=== PATIENT | female | born 1995 | race American Indian/Alaskan Native ===

== ENCOUNTER 2017-10-19 14:37 | Emergency (ER) | payer BC ==
[2017-10-19 14:47] VITALS: BP 113/70
[2017-10-19 15:13] LABS: Bilirubin,Urine NEG (Negative); Blood,Urine NEG (Negative); Color,Urine Yellow (Yellow); Mucus,Urine FEW /HPF; Protein,Urine <15 mg/dL mg/dL (Negative)
[2017-10-19 15:17] LABS: HCG Qualitative,Urine Positive (Negative)
--- NOTE | 2017-10-19 16:28 | Emergency Department Report ---
ED Female HPI - General Chief complaint: Abdominal Pain Stated complaint: ABD CRAMPS Time Seen by Provider: 10/19/17 14:53 Source: patient Mode of arrival: Ambulatory Limitations: No Limitations - History of Present Illness Initial comments: 22-year-old female presents with complaint of crampy lower abdominal pain worsening for 2 days. Patient states her last menstrual period was approximately 09/07/17. denies fevers chills nausea vomiting increased urinary frequency or dysuria. Denies vaginal discharge. Denies any vaginal bleeding at this time. Patient states pain is crampy and not intense in nature. Patient states this is similar to menstrual period. Is unsure if she is . MD Complaint: pelvic pain Onset/Timin -: days(s) Severity: moderate Severity scale (0 -10): 4 Quality: cramping Consistency: constant Improves with: none Are you Now?: Yes Last Menstrual Period: 09/07/17 EDC: 06/14/18 - Related Data Sexually active: Yes : 1 Previous Rx's Medication Instructions Recorded Last Taken Type Nitrofurantoin [place]/M-Cryst 100 mg PO Q12HR #14 capsule 05/09/16 Unknown Rx [Macrobid CAP] 21/Iron Fu/Folic Acid 1 each PO QDAY #30 tablet 10/19/17 Unknown Rx [ Complete Caplet] Allergies Allergy/AdvReac Type Severity Reaction Status Date / Time No Known Allergies Allergy Verified 12/17/15 01:57 ED Review of Systems ROS: Stated complaint: ABD CRAMPS Other details as noted in HPI Constitutional: denies: chills, fever Eyes: denies: eye pain, eye discharge, vision change ENT: denies: ear pain, throat pain Respiratory: denies: cough, shortness of breath, wheezing Cardiovascular: denies: chest pain, palpitations Endocrine: no symptoms reported Gastrointestinal: denies: abdominal pain, nausea, diarrhea Genitourinary: denies: urgency, dysuria, discharge Musculoskeletal: denies: back pain, joint swelling, arthralgia Skin: denies: rash, lesions Neurological: denies: headache, weakness, paresthesias Psychiatric: denies: anxiety, depression Hematological/Lymphatic: denies: easy bleeding, easy bruising ED Past Medical Hx - Past Medical History Previous Medical History?: No - Surgical History Past Surgical History?: No - Social History Smoking Status: Never Smoker Substance Use Type: None - Medications Home Medications: Home Medications Medication Instructions Recorded Confirmed Last Taken Type Nitrofurantoin [place]/M-Cryst 100 mg PO Q12HR #14 capsule 05/09/16 Unknown Rx [Macrobid CAP] 21/Iron Fu/Folic Acid 1 each PO QDAY #30 tablet 10/19/17 Unknown Rx [ Complete Caplet] ED Physical Exam - General Limitations: No Limitations General appearance: alert, in no apparent distress - Head Head exam: Present: atraumatic, normocephalic - Eye Eye exam: Present: normal appearance, PERRL, EOMI - ENT ENT exam: Present: mucous membranes moist - Neck Neck exam: Present: normal inspection - Respiratory Respiratory exam: Present: normal lung sounds bilaterally. Absent: respiratory distress - Cardiovascular Cardiovascular Exam: Present: regular rate, normal rhythm. Absent: systolic murmur, diastolic murmur, rubs, gallop - GI/Abdominal GI/Abdominal exam: Present: soft, normal bowel sounds - External exam: Present: normal external exam Speculum exam: Present: normal speculum exam Bi-manual exam: Present: normal bi-manual exam (no cervical motion tenderness or adnexal tenderness on exam) - Extremities Exam Extremities exam: Present: normal inspection - Back Exam Back exam: Present: normal inspection - Neurological Exam Neurological exam: Present: alert, oriented X3, CN II-XII intact, normal gait - Psychiatric Psychiatric exam: Present: normal affect, normal mood - Skin Skin exam: Present: warm, dry, intact, normal color. Absent: rash ED Course Vital Signs 10/19/17 14:43 Temperature 98.3 F Pulse Rate 85 Respiratory 20 Rate Blood Pressure 113/70 O2 Sat by Pulse 99 Oximetry ED Medical Decision Making - Lab Data Result diagrams: 10/19/17 16:24 10/19/17 16:24 - Medical Decision Making A/P: 1-ultrasound shows IUP with sac no clear pole identified yet 2-beta hCG 14,000, Rh+ 3-follow-up with primary care and [facility] 4-wet prep unremarkable, urinalysis unremarkable Critical care attestation.: If time is entered above; I have spent that time in minutes in the direct care of this critically ill patient, excluding procedure time. ED Disposition Clinical Impression: Qualifiers: Weeks of gestation: less than 8 weeks Qualified Code(s): Z3A.01 - Less than 8 weeks gestation of Disposition: - TO HOME OR SELFCARE Is pt being admited?: No Does the pt Need Aspirin: No Condition: Stable Instructions: (ED) Prescriptions: 21/Iron Fu/Folic Acid [ Complete Caplet] 1 each PO QDAY #30 tablet Referrals: PRIMARY CARE [Primary Care Provider] - 3-5 Days [facility] [Provider Group] - 3-5 Days [facility] [Provider Group] - 3-5 Days Time of Disposition: 18:05
[2017-10-19 16:46] LABS: Basophils # (Auto) 0.1 K/mm3 (0.0-0.1); Basophils % (Auto) 0.4 % (0.0-1.8); Eosinophils # (Auto) 0.1 K/mm3 (0.0-0.4); Eosinophils % (Auto) 0.6 % (0.0-4.3); Hemoglobin 13.2 gm/dl (10.1-14.3); Mean Corpuscular HGB Conc 33 % (30-34); Mean Corpuscular Hemoglobin 27 pg (28-32); Mean Corpuscular Volume 82 fl (79-97); Monocytes # (Auto) 0.7 K/mm3 (0.0-0.8); Monocytes % (Auto) 5.2 % (0.0-7.3); Platelet Count 200 K/mm3 (140-440); Red Blood Count 4.86 M/mm3 (3.65-5.03); Red Cell Distribution Width 14.9 % (13.2-15.2)
[2017-10-19 16:48] LABS: BUN/Creatinine Ratio 20; Blood Urea Nitrogen 8 mg/dL (7-17); Calcium 9.3 mg/dL (8.4-10.2); Hemolysis Index 14
--- NOTE | 2017-10-19 17:54 | Ultrasound Report ---
FINAL REPORT EXAM: US OB < = 14 WEEKS FETUS HISTORY: pelvic pain, about 5 weeks by lmp 1 TECHNIQUE: Transabdominal and transvaginal sonography of the pelvis. PRIORS: None for this . FINDINGS: There is a single, intrauterine . Ultrasound estimated gestational age is 6 weeks 2 days. Ultrasound estimated date of confinement is 12 June 2018. Yolk sac visualized, but pole and heart motion not confidently identified at this time. The right ovary measures 2.5 x 1.6 x 2.5 cm and is grossly unremarkable. The left ovary measures 4.8 x 3.1 x 2.9 cm and contains cystic foci, largest measuring 2.6 cm and the smaller measuring 1.7 cm, with some internal echogenic debris. Remainder of uterus and adnexa grossly unremarkable. IMPRESSION: 1. Intrauterine of uncertain viability. Correlation with serial beta-hCG levels and follow-up ultrasound may help in further evaluation. 2. Findings which may represent functional cystic change in the left ovary. Clinical correlation and followup pelvic ultrasound in 6-10 weeks advised to document resolution.
--- NOTE | 2017-10-19 17:56 | Ultrasound Report ---
FINAL REPORT EXAM: US OB TRANSVAGINAL HISTORY: pelvic pain, about 5 weeks by lmp TECHNIQUE: Transabdominal and transvaginal sonography of the pelvis. PRIORS: None for this . FINDINGS: There is a single, intrauterine . Ultrasound estimated gestational age is 6 weeks 2 days. Ultrasound estimated date of confinement is 12 June 2018. Yolk sac visualized, but pole and heart motion not confidently identified at this time. The right ovary measures 2.5 x 1.6 x 2.5 cm and is grossly unremarkable. The left ovary measures 4.8 x 3.1 x 2.9 cm and contains cystic foci, largest measuring 2.6 cm and the smaller measuring 1.7 cm, with some internal echogenic debris. Remainder of uterus and adnexa grossly unremarkable. IMPRESSION: 1. Intrauterine of uncertain viability. Correlation with serial beta-hCG levels and follow-up ultrasound may help in further evaluation. 2. Findings which may represent functional cystic change in the left ovary. Clinical correlation and followup pelvic ultrasound in 6-10 weeks advised to document resolution.
== END 2017-10-19 18:26 | disposition home or self-care (01) ==
LOC: ED 14:37
DX: O26.891 Other specified pregnancy related conditions, first trimester (principal); R10.30 Lower abdominal pain, unspecified; Z3A.08 8 weeks gestation of pregnancy
CPT/HCPCS: 36415; 76801; 76817; 80048; 81001; 81025; 84702; 85025; 86850; 86900; 86901; 87210; 87591

== ENCOUNTER 2019-01-30 16:26 | Emergency (ER) | payer BC, OTHER ==
--- NOTE | 2019-01-30 17:12 | Event Note ---
ED Screening Note Date of service: 01/30/19 Time: 17:09 ED Screening Note: This is a 23 y.o. F. that presents to the ER with left sided abdominal pain for 2 days. LMP 01/13/2019, A0 Denies N/V/D, constipation, vaginal discharge. This initial assessment/diagnostic orders/clinical plan/treatment(s) is/are subject to change based on patients health status, clinical progression and re- assessment by fellow clinical providers in the ED. Further treatment and workup at subsequent clinical providers discretion. Patient/guardian urged not to elope from the ED as their condition may be serious if not clinically assessed and managed. Initial orders include: Labs
[2019-01-30 17:48] LABS: Basophils % (Auto) 0.4 % (0.0-1.8); Eosinophils % (Auto) 0.4 % (0.0-4.3); Hematocrit 41.2 % (30.3-42.9); Hemoglobin 13.6 gm/dl (10.1-14.3); Lymphocytes # (Auto) 2.1 K/mm3 (1.2-5.4); Lymphocytes % (Auto) 19.5 % (13.4-35.0); Mean Corpuscular HGB Conc 33 % (30-34); Mean Corpuscular Volume 84 fl (79-97); Monocytes # (Auto) 0.6 K/mm3 (0.0-0.8); Monocytes % (Auto) 5.4 % (0.0-7.3); Platelet Count 171 K/mm3 (140-440); Red Blood Count 4.91 M/mm3 (3.65-5.03); Red Cell Distribution Width 16.2 % (13.2-15.2)
[2019-01-30 18:03] LABS: Bilirubin,Urine NEG (Negative); Blood,Urine NEG (Negative); Color,Urine Yellow (Yellow); Mucus,Urine 3+ /HPF; Protein,Urine <15 mg/dL mg/dL (Negative); Urobilinogen,Urine < 2.0 mg/dL (<2.0)
[2019-01-30 18:32] LABS: Alanine Aminotransferase 8 units/L (7-56); Albumin 4.3 g/dL (3.9-5); BUN/Creatinine Ratio 13; Blood Urea Nitrogen 8 mg/dL (7-17); Calcium 8.9 mg/dL (8.4-10.2); Hemolysis Index 12
--- NOTE | 2019-01-30 19:16 | Emergency Department Report ---
ED Abdominal Pain HPI - General Chief Complaint: Abdominal Pain Stated Complaint: ABD PAIN Time Seen by Provider: 01/30/19 17:09 Source: patient Mode of arrival: Ambulatory Limitations: No Limitations - History of Present Illness Initial Comments: This is a 23-year-old female with no prior medical history presents ED complaining of left-sided pelvic pain for the past 2 days. Patient states that she has a history of ovarian cyst and was diagnosed recently. Patient denies nausea vomiting diarrhea, fever, vaginal bleeding, vaginal discharge. MD Complaint: abdominal pain - Related Data Previous Rx's Medication Instructions Recorded Last Taken Type 21/Iron Fu/Folic Acid 1 each PO QDAY #30 tablet 10/19/17 Unknown Rx [ Complete Caplet] Fluconazole [Diflucan TAB] 150 mg PO ONCE #1 tablet 07/24/18 Unknown Rx Nitrofurantoin [place]/M-Cryst 100 mg PO Q12HR #14 capsule 07/24/18 Unknown Rx [Macrobid CAP] metroNIDAZOLE 0.75% [Vandazole 1 applicator VG QHS 5 Days #1 tube 07/24/18 Unknown Rx 0.75% VAGINAL] Ibuprofen [Motrin] 800 mg PO Q8HR #25 tablet 01/30/19 Unknown Rx Allergies Allergy/AdvReac Type Severity Reaction Status Date / Time No Known Allergies Allergy Verified 12/17/15 01:57 ED Review of Systems ROS: Stated complaint: ABD PAIN Other details as noted in HPI Comment: All other systems reviewed and negative ED Past Medical Hx - Past Medical History Previous Medical History?: No - Surgical History Past Surgical History?: Yes Additional Surgical History: x1 - Social History Smoking Status: Never Smoker Substance Use Type: None - Medications Home Medications: Home Medications Medication Instructions Recorded Confirmed Last Taken Type 21/Iron Fu/Folic Acid 1 each PO QDAY #30 tablet 10/19/17 Unknown Rx [ Complete Caplet] Fluconazole [Diflucan TAB] 150 mg PO ONCE #1 tablet 07/24/18 Unknown Rx Nitrofurantoin [place]/M-Cryst 100 mg PO Q12HR #14 capsule 07/24/18 Unknown Rx [Macrobid CAP] metroNIDAZOLE 0.75% [Vandazole 1 applicator VG QHS 5 Days #1 tube 07/24/18 Unknown Rx 0.75% VAGINAL] Ibuprofen [Motrin] 800 mg PO Q8HR #25 tablet 01/30/19 Unknown Rx ED Physical Exam - General Limitations: No Limitations General appearance: alert, in no apparent distress - Head Head exam: Present: atraumatic, normocephalic - Eye Eye exam: Present: normal appearance - ENT ENT exam: Present: mucous membranes moist - Neck Neck exam: Present: normal inspection - Respiratory Respiratory exam: Present: normal lung sounds bilaterally. Absent: respiratory distress - Cardiovascular Cardiovascular Exam: Present: regular rate, normal rhythm. Absent: systolic murmur, diastolic murmur, rubs, gallop - GI/Abdominal GI/Abdominal exam: Present: soft, normal bowel sounds. Absent: distended, tenderness, guarding, mass - Extremities Exam Extremities exam: Present: normal inspection - Back Exam Back exam: Present: normal inspection - Neurological Exam Neurological exam: Present: alert, oriented X3 - Psychiatric Psychiatric exam: Present: normal affect, normal mood - Skin Skin exam: Present: warm, dry, intact, normal color. Absent: rash ED Course Vital Signs 01/30/19 01/30/19 17:10 20:42 Temperature 98.5 F 98.2 F Pulse Rate 87 66 Respiratory 16 16 Rate Blood Pressure 112/72 Blood Pressure 126/72 [Left] O2 Sat by Pulse 100 100 Oximetry ED Medical Decision Making - Lab Data Result diagrams: 01/30/19 17:22 01/30/19 17:22 - Medical Decision Making 25-year-old female presents with acute on chronic pelvic pain from ovarian cyst. Vital signs are normal urinalysis negative, all labs are within normal limits. Discussed findings with the patient. Discussed patient follow up with [facility]. Patient is in no acute distress. Critical care attestation.: If time is entered above; I have spent that time in minutes in the direct care of this critically ill patient, excluding procedure time. ED Disposition Clinical Impression: Pelvic pain, Ovarian cyst Disposition: DC-01 TO HOME OR SELFCARE Is pt being admited?: No Does the pt Need Aspirin: No Condition: Stable Instructions: Ovarian Cyst (ED), Chronic Pelvic Pain in Women (ED), Abdominal Pain (ED) Additional Instructions: Make sure to follow up with the primary care physician as discussed. Take all your medications as you've been prescribed. If you have any worsening symptoms or develop new symptoms please return to ED immediately. Prescriptions: Ibuprofen [Motrin] 800 mg PO Q8HR #25 tablet Referrals: EDEN ROA MD [Primary Care Provider] - 3-5 Days [facility] [Outside] - 3-5 Days [facility] [Provider Group] - 3-5 Days Forms: Work/School Release Form(ED) Time of Disposition: 20:09
[2019-01-30 20:43] VITALS: BP 126/72
== END 2019-01-30 20:42 | disposition home or self-care (01) ==
LOC: ED 16:26
DX: N83.209 Unspecified ovarian cyst, unspecified side (principal); Z98.890 Other specified postprocedural states; Z79.899 Other long term (current) drug therapy
CPT/HCPCS: 36415; 80053; 81001; 83690; 84703; 85025; 99283

== ENCOUNTER 2019-11-26 10:48 | Day surgery (SDC) | payer BC, OTHER ==
[2019-11-26] MEDS ORDERED: LACTATED RINGERS 1,000 ML IV SCH (11:21)
[2019-11-26] MEDS ORDERED: fentaNYL 100 MCG/2 ML INJ IV PRN (12:28)
[2019-11-26] MEDS ORDERED: ONDANSETRON 4 MG/2 ML INJ IV PRN (12:28)
--- NOTE | 2019-11-26 12:29 | Anesthesia Day of Surgery ---
Anesthesia Day of Surgery - Day of Surgery Patient Examined: Yes Patient H&P Reviewed: Yes Patient is NPO: Yes
--- NOTE | 2019-11-26 12:33 | Anesthesia Consultation ---
Anesthesia Consult and Med Hx Date of service: 11/26/19 - Airway Anesthetic Teeth Evaluation: Good ROM Head & Neck: Adequate Mental/Hyoid Distance: Adequate Mallampati Class: Class II Intubation Access Assessment: Good - Pre-Operative Health Status ASA Pre-Surgery Classification: ASA1 Proposed Anesthetic Plan: General - Central Nervous System Hx Psychiatric Problems: No - Other Systems Hx Cancer: No
[2019-11-26] MEDS ORDERED: MIDAZOLAM 2 MG/2 ML INJ IV NR (13:00)
[2019-11-26] MEDS ORDERED: propofoL 200 MG/20 ML VIAL IV ONE (13:02)
[2019-11-26] MEDS ORDERED: fentaNYL 100 MCG/2 ML INJ ONE (13:03)
[2019-11-26] MEDS ORDERED: LIDOCAINE MPF (2%) 20 MG/1 ML VIAL 5 ML ONE (13:03)
[2019-11-26] MEDS ORDERED: BUPIVACAINE/PF (0.5%) 5 MG/1 ML 30 ML VIAL INFILTRATI ONE (13:15)
[2019-11-26] MEDS ORDERED: METHYLENE BLUE 50 MG/10 ML AMP ONE (13:15)
[2019-11-26] MEDS ORDERED: ceFAZolin/STERILE WATER 2 GM/20 ML SYRINGE IV NR (15:30)
[2019-11-26] MEDS ORDERED: SODIUM CHLORIDE P/F VIAL 10 ML 20 ML ONE (15:33)
[2019-11-26] MEDS ORDERED: ceFAZolin/Water 2 GM/20 ML 2 GM/20 ML SYRINGE IV ONE (15:35)
[2019-11-26] MEDS ORDERED: SODIUM CHLORIDE 0.9% 100 ML ONE (15:59)
[2019-11-26 16:15] LABS: Hematocrit 42.2 % (30.3-42.9); Hemoglobin 13.6 gm/dl (10.1-14.3)
[2019-11-26] MEDS ORDERED: SODIUM CHLORIDE 0.9% 100 ML IVPB IV ONE (16:18)
[2019-11-26] MEDS ORDERED: METHYLENE BLUE 50 MG/10 ML AMP IV ONE (16:19)
[2019-11-26] MEDS ORDERED: SODIUM CHLORIDE 0.9% IRR 1,000 ML BOTTLE IR ONE (16:20)
[2019-11-26] MEDS ORDERED: HYDROmorphone 1 MG/1 ML INJ ONE (17:04)
[2019-11-26] MEDS ORDERED: NEOSTIGMINE 10MG/10 ML INJ MDV ONE (17:06)
[2019-11-26] MEDS ORDERED: LACTATED RINGERS 1,000 ML ONE (17:06)
[2019-11-26] MEDS ORDERED: KETOROLAC 30 MG/1 ML INJ ONE (17:06)
[2019-11-26] MEDS ORDERED: ONDANSETRON 4 MG/2 ML INJ ONE (17:06)
[2019-11-26] MEDS ORDERED: GLYCOPYRROLATE 0.4 MG/2 ML INJ ONE (17:06)
--- NOTE | 2019-11-26 17:28 | Operative Report ---
Operative Report Operative Report: Admission diagnosis: Pelvic pain, dyspareunia, infertility, probable peritoneal adhesions Postoperative diagnosis: The same. Extensive peritoneal adhesions, left fallopian tube blockage. Procedure: Exploratory laparoscopy, lysis of adhesions, dye test of the fallopian tubes. Surgeon: Purnima Vaz MD Consulting Actuary surgeon: MD Naima Anesthesia: General anesthesia Anesthesiologist: Ana CHINCHILLA Estimated blood loss: Less than 5 cc Complications: None Findings: As visualized through the laparoscope, the greater omentum was densely adherent to the anterior parietal peritoneum inferior to the navel. There were further adhesions within the depths of the pelvis involving the bowels and the anterior parietal peritoneum in the iliac fossa on the right side. There were further adhesions involving the left fallopian tube to the pouch of Wes. In the upper abdomen were extensive adhesions involving the anterior aspect of the liver to the inferior dome of the diaphragm. Procedure in details: Patient was taken to the operating room and in the straight supine position she was given general anesthesia. Patient was then put in the lithotomy position and prepped in the vulvar vagina and abdomen. The drapes were placed. A timeout was done. With the go ahead from the reservations specialist, an indwelling Rodriguez catheter was inserted. A kroner cannula was inserted into an anteverted uterus. At the navel a small stab incision was made in the sub-umbilical aspect. The Veress needle was carefully inserted into the peritoneal cavity, making sure to point the tip of this instruments towards the free hollow of the pelvis. The Veress needle was thereafter aspirated and no blood was drawn. Veress needle was then flushed through with a small quantity of sterile normal saline without any resistance. About 3 and half liters of carbon dioxide was used to insufflate the peritoneal cavity. After removing the Veress needle, a 5 mm trocar with its port was inserted into the peritoneal cavity and again making sure to point the tip of this instrument into the free hollow of the pelvis. The laparoscope was subsequently confirmed successful access to the peritoneal cavity. 2 additional 5 mm ports were placed in the flanks. After a thorough inspection of the peritoneal cavity, a decision was made to invite general surgeon Dr. Mcnamara to take down adhesions in the mid abdomen. Dr. Mcnamara responded and took down these adhesions using the LigaSure. After adequate visibility was allowed into the pelvis, the remaining adhesions within the pelvis described above were divided by me using the LigaSure. There was no bleeding intraperitoneally. Hemostasis was very good. Careful inspection of the peritoneal cavity was once again done. 60 cc of methylene blue colored dye was infused across the kroner cannula and this showed the right fallopian tube to be patent. Extensive manipulation of the left fallopian tube, in the end did not allow any flow of the dye through the fimbrial end of the left fallopian tube: The conclusion was of a left fallopian tube all occlusion. Careful examination of the peritoneal cavity was done again. Hemostasis was great. The pneumoperitoneum was then expelled and all instruments were removed from the abdomen. Oozing at the stab incisions were controlled with the Bovie before each incision was closed with Dermabond. The patient tolerated the procedure well. There were no complications. Blood loss was estimated at less than 5 cc. All sponges and instruments were accounted for. The patient was transferred in satisfactory condition to the recovery room.
[2019-11-26] MEDS ORDERED: ACETAMINOPHEN 325 MG TAB PO PRN (17:29)
[2019-11-26] MEDS ORDERED: HYDROcodone/ACETAMINOPHEN 5-325 MG TAB PO PRN (17:29)
[2019-11-26] MEDS ORDERED: HYDROcodone/ACETAMINOPHEN 5-325 MG TAB ONE (17:35)
--- NOTE | 2019-11-26 18:09 | Procedure Note ---
Date of procedure: 11/26/19 Pre-op diagnosis: intraabdominal adhesions Post-op diagnosis: same Procedure: Laparoscopic lysis of adhesions Findings: Intraoperative consultation from Dr. Hi for intra-abdominal adhesions. The procedure was already underway. There were omental adhesions to the mid anterior abdominal wall. Dr.[place] bro had a ready placed two 5 mm trochars one at the umbilicus and one in the right upper abdomen. An additional 5 mm trocar was placed in the left upper abdomen under direct visualization. The adhesions were carefully inspected and only omentum was involved in the adhesions. These adhesions were carefully lysed using the LigaSure device. After all adhesions were taken down, the omentum was inspected and there was no bleeding identified. There was no injury to any of the underlying structures. The pelvis was vi sualized and no bowel adhesions were seen. At this point, the case was turned back over to . Please see separate operative report. The patient remained stable throughout the case. Anesthesia: GETA Surgeon: SHELLI MOY Estimated blood loss: minimal Pathology: none Condition: stable Disposition: no change
--- NOTE | 2019-11-26 19:24 | Post Anesthesia Evaluation ---
- Post Anesthesia Evaluation Patient Participated: Yes Airway Patent: Yes Stable Respiratory Function: Yes Nausea/Vomiting: No Temp > 96.8F: Yes Pain Manageable: Yes Adequeate Hydration: Yes Anesthesia Complications: No Block Receding Appropriately: Not Applicable Patient on Ventilator: No
[2019-11-26 21:34] VITALS: BP 127/79
== END 2019-11-26 10:49 | disposition home or self-care (01) ==
LOC: OR 10:48
PROVIDERS: ATTEND Obstetrics & Gynecology
DX: N97.1 Female infertility of tubal origin (principal); N94.19 Other specified dyspareunia; R10.2 Pelvic and perineal pain; K66.0 Peritoneal adhesions (postprocedural) (postinfection); Z98.891 History of uterine scar from previous surgery; Z98.890 Other specified postprocedural states
CPT/HCPCS: 36415; 49329; 58350; 81025; 85014; 85018; 86850; 86900; 86901; J0690; J1170; J1885; J2250; J2405; J2704; J2710; J3010; J7120; Q9968

== ENCOUNTER 2020-05-06 03:33 | Emergency (ER) | payer BC, MEDICAID ==
[2020-05-06 04:22] VITALS: BP 105/75
--- NOTE | 2020-05-06 04:57 | Emergency Department Report ---
ED Female HPI - General Chief complaint: Urogenital-Female Stated complaint: 13 WEEKS /GREEN DISCHARGE Source: patient Mode of arrival: Ambulatory Limitations: No Limitations - History of Present Illness Initial comments: Patient is a A0 24-year-old -[place] female who is approximately 13 weeks gestation who presents to the ED with complaint of acute onset persistent greenish vaginal discharge for the last 6 hours. Patient states that the discharge has been more pronounced and more significant in the last 2 hours. Patient denies abdominal pain, dyspareunia, dysuria, urinary frequency and urgency, dizziness, syncope, fever, chills, diarrhea, nausea and vomiting, vaginal bleeding or low back pain. MD Complaint: vaginal discharge, possible STD -: Sudden, hour(s) (6) Location: other (vaginal) Radiation: non-radiating Severity: mild Severity scale (0 -10): 0 Quality: dull Consistency: constant Improves with: none Worsens with: none Are you Now?: Yes (13 weeks gestation) Associated Symptoms: vaginal discharge. denies: vaginal bleeding, abdominal pain, nausea/vomiting, fever/chills, headaches, loss of appetite, hematuria, seizure, shortness of breath, weakness, other - Related Data Sexually active: Yes : 2 Para: 1 A: 0 Previous Rx's Medication Instructions Recorded Last Taken Type HYDROcodone/APAP 5-325 [[place] 1 - 2 each PO Q6HR PRN #20 tablet 11/26/19 Unknown Rx 5/325] metroNIDAZOLE [Flagyl] 500 mg PO Q12HR #14 tab 05/06/20 Unknown Rx Allergies Allergy/AdvReac Type Severity Reaction Status Date / Time No Known Allergies Allergy Verified 11/19/19 15:08 ED Review of Systems ROS: Stated complaint: 13 WEEKS /GREEN DISCHARGE Other details as noted in HPI Constitutional: denies: chills, fever Eyes: denies: eye pain, eye discharge, vision change ENT: denies: ear pain, throat pain Respiratory: denies: cough, shortness of breath, wheezing Cardiovascular: denies: chest pain, palpitations Endocrine: no symptoms reported Gastrointestinal: denies: abdominal pain, nausea, diarrhea Genitourinary: discharge (Greenish). denies: urgency, dysuria, frequency, abnormal menses Musculoskeletal: denies: back pain, joint swelling, arthralgia Skin: denies: rash, lesions Neurological: denies: headache, weakness, paresthesias Psychiatric: denies: anxiety, depression Hematological/Lymphatic: denies: easy bleeding, easy bruising ED Past Medical Hx - Past Medical History Previous Medical History?: Yes Hx Headaches / Migraines: Yes - Surgical History Past Surgical History?: Yes Additional Surgical History: x1 - Social History Smoking Status: Never Smoker Substance Use Type: None - Medications Home Medications: Home Medications Medication Instructions Recorded Confirmed Last Taken Type HYDROcodone/APAP 5-325 [[place] 1 - 2 each PO Q6HR PRN #20 tablet 11/26/19 Unknown Rx 5/325] metroNIDAZOLE [Flagyl] 500 mg PO Q12HR #14 tab 05/06/20 Unknown Rx ED Physical Exam - General Limitations: No Limitations General appearance: alert, in no apparent distress - Head Head exam: Present: atraumatic, normocephalic, normal inspection - Eye Eye exam: Present: normal appearance, PERRL, EOMI Pupils: Present: normal accommodation - ENT ENT exam: Present: normal exam, normal orophraynx, mucous membranes moist, TM's normal bilaterally, normal external ear exam - Neck Neck exam: Present: normal inspection, full ROM - Respiratory Respiratory exam: Present: normal lung sounds bilaterally. Absent: respiratory distress, wheezes, rales, stridor, chest wall tenderness, accessory muscle use, decreased breath sounds - Cardiovascular Cardiovascular Exam: Present: regular rate, normal rhythm, normal heart sounds. Absent: systolic murmur, diastolic murmur, rubs, gallop - GI/Abdominal GI/Abdominal exam: Present: soft, normal bowel sounds. Absent: tenderness, guarding, rebound, hyperactive bowel sounds, organomegaly, mass - Bi-manual exam: Present: other (Pelvic exam deferred, patient prefers to self swab) - Extremities Exam Extremities exam: Present: normal inspection, full ROM, normal capillary refill - Back Exam Back exam: Present: normal inspection, full ROM. Absent: tenderness, CVA tenderness (R), CVA tenderness (L), muscle spasm, paraspinal tenderness - Neurological Exam Neurological exam: Present: alert, oriented X3, CN II-XII intact, normal gait, reflexes normal - Psychiatric Psychiatric exam: Present: normal affect, normal mood - Skin Skin exam: Present: warm, dry, intact, normal color. Absent: rash ED Course Vital Signs 11/04/20 03:41 Temperature 97.9 F Pulse Rate 77 Respiratory 18 Rate Blood Pressure 105/75 O2 Sat by Pulse 99 Oximetry ED Medical Decision Making - Medical Decision Making This is a A0 24-year-old -[place] female who is approximately 13 weeks gestation who presents to the ED with complaint of acute onset persistent greenish vaginal discharge for the last 6 hours. Patient states that the discharge has been more pronounced and more significant in the last 2 hours. In the ED, patient is alert and oriented x3 and is not in distress. Urinalysis is unremarkable and wet prep test was negative for trichomonas and Rose but has some Gardnerella vaginalis. Gonorrhea and Chlamydia test results are pending. Patient was discharged home on medications, Flagyl 500 mg to be taken twice a day for 7 days, and was advised to follow-up with CONFERENCE COORDINATOR physician in 3 to 5 days for reevaluation or return to the ED immediately if symptoms get worse. - Differential Diagnosis BV; PID; UTI; Muscle strain; Rose vaginitis Critical care attestation.: If time is entered above; I have spent that time in minutes in the direct care of this critically ill patient, excluding procedure time. ED Disposition Clinical Impression: Bacterial vaginosis Disposition: DC-01 TO HOME OR SELFCARE Is pt being admited?: No Does the pt Need Aspirin: No Condition: Stable Instructions: Bacterial Vaginosis (ED) Additional Instructions: Take medication with food, drink plenty of fluids and follow-up with your primary care physician in 5 to 7 days for reevaluation. Return to the ED immediately if symptoms get worse. Prescriptions: metroNIDAZOLE [Flagyl] 500 mg PO Q12HR #14 tab Referrals: [facility] [Provider Group] - 3-5 Days Forms: Accompanied Note, STI Treatment and Prevention, Work/School Release Form Time of Disposition: 05:59 Print Language: LAO
[2020-05-06 05:18] LABS: HCG Qualitative,Urine Positive (Negative)
[2020-05-06 05:21] LABS: Bacteria,Urine 1+ /HPF (Negative); Bilirubin,Urine NEG (Negative); Blood,Urine NEG (Negative); Color,Urine Yellow (Yellow); Mucus,Urine FEW /HPF; Protein,Urine <15 mg/dL mg/dL (Negative); Urobilinogen,Urine < 2.0 mg/dL (<2.0)
== END 2020-05-06 06:05 | disposition home or self-care (01) ==
LOC: ED 03:33
DX: O23.591 Infection of other part of genital tract in pregnancy, first trimester (principal); B96.89 Other specified bacterial agents as the cause of diseases classified elsewhere; G43.909 Migraine, unspecified, not intractable, without status migrainosus; Z3A.13 13 weeks gestation of pregnancy; Z98.890 Other specified postprocedural states; Z79.899 Other long term (current) drug therapy
CPT/HCPCS: 81001; 81025; 87210; 87591; 99283

== ENCOUNTER 2021-04-28 00:09 | Emergency (ER) | payer BC ==
[2021-04-28 01:29] LABS: Bacteria,Urine 2+ /HPF (Negative); Bilirubin,Urine NEG (Negative); Blood,Urine MOD (Negative); Color,Urine Yellow (Yellow); Mucus,Urine FEW /HPF
[2021-04-28 01:51] LABS: WBC,Urine > 182.0 /HPF (0.0-6.0)
[2021-04-28 02:12] LABS: Basophils % (Auto) 0.2 % (0.0-1.8); Hematocrit 34.1 % (30.3-42.9); Hemoglobin 10.9 gm/dl (10.1-14.3); Lymphocytes # (Auto) 1.1 K/mm3 (1.2-5.4); Lymphocytes % (Auto) 9.6 % (13.4-35.0); Mean Corpuscular HGB Conc 32 % (30-34); Mean Corpuscular Volume 76 fl (79-97); Monocytes % (Auto) 8.7 % (0.0-7.3); Platelet Count 117 K/mm3 (140-440); Red Cell Distribution Width 16.6 % (13.2-15.2)
[2021-04-28 02:20] LABS: Alanine Aminotransferase 15 units/L (7-56); BUN/Creatinine Ratio 6; Bilirubin,Direct 0.3 mg/dL (0-0.2); Blood Urea Nitrogen 5 mg/dL (7-17); Calcium 8.8 mg/dL (8.4-10.2); Hemolysis Index 0
[2021-04-28] MEDS ORDERED: SODIUM CHLORIDE 0.9% 1000 ML 1,000 ML IV ONE (02:47)
[2021-04-28] MEDS ORDERED: KETOROLAC 30 MG/1 ML INJ IV ONE (02:48)
[2021-04-28] MEDS ORDERED: ONDANSETRON 4 MG/2 ML INJ IV ONE (02:48)
--- NOTE | 2021-04-28 03:09 | Emergency Department Report ---
ED Abdominal Pain HPI - General Chief Complaint: Abdominal Pain Stated Complaint: BOTH SIDE FLANK PAIN/BURN WHEN URINATING Time Seen by Provider: 04/28/21 02:51 Source: patient Mode of arrival: Ambulatory Limitations: No Limitations - History of Present Illness Initial Comments: Ms. Short is a 25-year-old female who presents for bilateral flank pain rad iating suprapubic. Patient has a history of recurring UTIs. Patient denies symptoms of STI. Denies vaginal discharge patient does endorse urinary frequency urgency and dysuria. Patient denies hematuria. Last menstrual cycle was 2 weeks ago. There is some nausea no vomiting. Abdominal pain is is cramping. Patient noted malaise and fever with trigger ED visit today. Is currently not on antibiotics. Denies smoking, substance. Flank pain is 5/10 at this time, pain is exacerbated by voiding and palpation. MD Complaint: abdominal pain, flank pain Severity scale (0 -10): 0 - Related Data Previous Rx's Medication Instructions Recorded Last Taken Type HYDROcodone/APAP 5-325 [[place] 1 - 2 each PO Q6HR PRN #20 tablet 11/26/19 Unknown Rx 5/325] metroNIDAZOLE [Flagyl] 500 mg PO Q12HR #14 tab 05/06/20 Unknown Rx Ibuprofen [Motrin 800 MG tab] 800 mg PO Q8HR PRN #30 tablet 04/28/21 Unknown Rx Ondansetron [Zofran Odt] 4 mg PO Q8HR #12 tab.rapdis 04/28/21 Unknown Rx cephALEXin [Keflex] 500 mg PO Q12HR 7 Days #14 cap 04/28/21 Unknown Rx Allergies Allergy/AdvReac Type Severity Reaction Status Date / Time No Known Allergies Allergy Verified 11/19/19 15:08 ED Review of Systems ROS: Stated complaint: BOTH SIDE FLANK PAIN/BURN WHEN URINATING Other details as noted in HPI Constitutional: denies: chills, fever Eyes: denies: eye pain, eye discharge, vision change ENT: denies: ear pain, throat pain Respiratory: denies: cough, shortness of breath, wheezing Cardiovascular: denies: chest pain, palpitations Endocrine: no symptoms reported Gastrointestinal: abdominal pain, nausea. denies: diarrhea, constipation Genitourinary: urgency, dysuria, frequency. denies: hematuria, discharge, dyspareunia Musculoskeletal: back pain. denies: joint swelling, arthralgia Skin: denies: rash, lesions Neurological: denies: headache, weakness, paresthesias Psychiatric: denies: anxiety, depression Hematological/Lymphatic: denies: easy bleeding, easy bruising ED Past Medical Hx - Past Medical History Previous Medical History?: No Hx Headaches / Migraines: Yes - Surgical History Past Surgical History?: Yes Additional Surgical History: x2 - Social History Smoking Status: Never Smoker Substance Use Type: None - Medications Home Medications: Home Medications Medication Instructions Recorded Confirmed Last Taken Type HYDROcodone/APAP 5-325 [[place] 1 - 2 each PO Q6HR PRN #20 tablet 11/26/19 Unknown Rx 5/325] metroNIDAZOLE [Flagyl] 500 mg PO Q12HR #14 tab 05/06/20 Unknown Rx Ibuprofen [Motrin 800 MG tab] 800 mg PO Q8HR PRN #30 tablet 04/28/21 Unknown Rx Ondansetron [Zofran Odt] 4 mg PO Q8HR #12 tab.rapdis 04/28/21 Unknown Rx cephALEXin [Keflex] 500 mg PO Q12HR 7 Days #14 cap 04/28/21 Unknown Rx ED Physical Exam - General Limitations: No Limitations General appearance: alert, in no apparent distress - Head Head exam: Present: atraumatic, normocephalic - Eye Eye exam: Present: normal appearance, EOMI Pupils: Present: normal accommodation - ENT ENT exam: Present: mucous membranes moist - Neck Neck exam: Present: normal inspection, full ROM. Absent: tenderness - Respiratory Respiratory exam: Present: normal lung sounds bilaterally. Absent: respiratory distress, wheezes, stridor, chest wall tenderness - Cardiovascular Cardiovascular Exam: Present: regular rate, normal rhythm, normal heart sounds. Absent: systolic murmur, diastolic murmur, rubs, gallop - GI/Abdominal GI/Abdominal exam: Present: soft, normal bowel sounds. Absent: distended, tenderness, guarding, rebound, bruit, hernia - Rectal Rectal exam: Present: deferred - Extremities Exam Extremities exam: Present: normal inspection, full ROM. Absent: tenderness - Back Exam Back exam: Present: normal inspection, full ROM. Absent: CVA tenderness (R), CVA tenderness (L) - Neurological Exam Neurological exam: Present: alert, oriented X3, CN II-XII intact, normal gait, reflexes normal. Absent: motor sensory deficit - Expanded Neurological Exam Expanded Patient oriented to: Present: person, place, time Speech: Present: fluid speech Motor strength exam: RUE: 5, LUE: 5, RLE: 5, LLE: 5 Best Eye Response ([place]): (4) open spontaneously Best Motor Response ([place]): (6) obeys commands Best Verbal Response ([place]): (5) oriented Jacob Total: 15 - Psychiatric Psychiatric exam: Present: normal affect, normal mood - Skin Skin exam: Present: warm, dry, intact, normal color. Absent: rash ED Course Vital Signs 04/28/21 04/28/21 01:01 05:29 Temperature 101.8 F H 99.3 F Pulse Rate 105 H 87 Respiratory 16 16 Rate Blood Pressure 110/63 88/52 [Right] O2 Sat by Pulse 99 Oximetry ED Medical Decision Making - Lab Data Result diagrams: 04/28/21 01:42 04/28/21 01:42 Lab Results 04/28/21 04/28/21 04/28/21 Range/Units 01:17 01:42 01:42 WBC 11.2 H (4.5-11.0) K/mm3 RBC 4.50 (3.65-5.03) M/mm3 Hgb 10.9 (10.1-14.3) gm/dl Hct 34.1 (30.3-42.9) % MCV 76 L (79-97) fl MCH 24 L (28-32) pg MCHC 32 (30-34) % RDW 16.6 H (13.2-15.2) % Plt Count 117 L (140-440) K/mm3 Lymph % (Auto) 9.6 L (13.4-35.0) % [place] % (Auto) 8.7 H (0.0-7.3) % Eos % (Auto) 0.0 (0.0-4.3) % Baso % (Auto) 0.2 (0.0-1.8) % Lymph # (Auto) 1.1 L (1.2-5.4) K/mm3 [place] # (Auto) 1.0 H (0.0-0.8) K/mm3 Eos # (Auto) 0.0 (0.0-0.4) K/mm3 Baso # (Auto) 0.0 (0.0-0.1) K/mm3 Seg Neutrophils % 81.5 H (40.0-70.0) % Seg Neutrophils # 9.2 H (1.8-7.7) K/mm3 Sodium 134 L (137-145) mmol/L Potassium 3.3 L (3.6-5.0) mmol/L Chloride 96.6 L (98-107) mmol/L Carbon Dioxide 23 (22-30) mmol/L Anion Gap 18 mmol/L BUN 5 L (7-17) mg/dL Creatinine 0.8 (0.6-1.2) mg/dL Estimated GFR > 60 ml/min BUN/Creatinine Ratio 6 % Glucose 113 H (65-100) mg/dL Calcium 8.8 (8.4-10.2) mg/dL Total Bilirubin 1.00 (0.1-1.2) mg/dL Direct Bilirubin 0.3 H (0-0.2) mg/dL Indirect Bilirubin 0.7 mg/dL AST 23 (5-40) units/L ALT 15 (7-56) units/L Alkaline Phosphatase 78 (35-129) units/L Total Protein 7.5 (6.3-8.2) g/dL Albumin 4.0 (3.9-5) g/dL Albumin/Globulin Ratio 1.1 % Amylase 37 (27-131) units/L Lipase 10 L (13-60) units/L HCG, Quant (0-4) mIU/mL Urine Color Yellow (Yellow) Urine Turbidity Cloudy (Clear) Urine pH 6.0 (5.0-7.0) Ur Specific [place] 1.014 (1.003-1.030) Urine Protein 100 mg/dl (Negative) mg/dL Urine Glucose (UA) Neg (Negative) mg/dL Urine Ketones Neg (Negative) mg/dL Urine Blood Mod (Negative) Urine Nitrite Pos (Negative) Urine Bilirubin Neg (Negative) Urine Urobilinogen 4.0 (<2.0) mg/dL Ur Leukocyte Esterase Lg (Negative) Urine WBC (Auto) > 182.0 H (0.0-6.0) /HPF Urine RBC (Auto) 8.0 (0.0-6.0) /HPF U Epithel Cells (Auto) 3.0 (0-13.0) /HPF Urine Bacteria (Auto) 2+ (Negative) /HPF Urine Mucus Few /HPF Urine Yeast ([place]) 2+ /HPF 04/28/21 Range/Units 01:42 WBC (4.5-11.0) K/mm3 RBC (3.65-5.03) M/mm3 Hgb (10.1-14.3) gm/dl Hct (30.3-42.9) % MCV (79-97) fl MCH (28-32) pg MCHC (30-34) % RDW (13.2-15.2) % Plt Count (140-440) K/mm3 Lymph % (Auto) (13.4-35.0) % [place] % (Auto) (0.0-7.3) % Eos % (Auto) (0.0-4.3) % Baso % (Auto) (0.0-1.8) % Lymph # (Auto) (1.2-5.4) K/mm3 [place] # (Auto) (0.0-0.8) K/mm3 Eos # (Auto) (0.0-0.4) K/mm3 Baso # (Auto) (0.0-0.1) K/mm3 Seg Neutrophils % (40.0-70.0) % Seg Neutrophils # (1.8-7.7) K/mm3 Sodium (137-145) mmol/L Potassium (3.6-5.0) mmol/L Chloride (98-107) mmol/L Carbon Dioxide (22-30) mmol/L Anion Gap mmol/L BUN (7-17) mg/dL Creatinine (0.6-1.2) mg/dL Estimated GFR ml/min BUN/Creatinine Ratio % Glucose (65-100) mg/dL Calcium (8.4-10.2) mg/dL Total Bilirubin (0.1-1.2) mg/dL Direct Bilirubin (0-0.2) mg/dL Indirect Bilirubin mg/dL AST (5-40) units/L ALT (7-56) units/L Alkaline Phosphatase (35-129) units/L Total Protein (6.3-8.2) g/dL Albumin (3.9-5) g/dL Albumin/Globulin Ratio % Amylase (27-131) units/L Lipase (13-60) units/L HCG, Quant < 2 (0-4) mIU/mL Urine Color (Yellow) Urine Turbidity (Clear) Urine pH (5.0-7.0) Ur Specific [place] (1.003-1.030) Urine Protein (Negative) mg/dL Urine Glucose (UA) (Negative) mg/dL Urine Ketones (Negative) mg/dL Urine Blood (Negative) Urine Nitrite (Negative) Urine Bilirubin (Negative) Urine Urobilinogen (<2.0) mg/dL Ur Leukocyte Esterase (Negative) Urine WBC (Auto) (0.0-6.0) /HPF Urine RBC (Auto) (0.0-6.0) /HPF U Epithel Cells (Auto) (0-13.0) /HPF Urine Bacteria (Auto) (Negative) /HPF Urine Mucus /HPF Urine Yeast ([place]) /HPF - Radiology Data Radiology results: report reviewed, image reviewed Ordering Physician: JOANNA ADRIAN MD Date of Service: 04/28/21 Procedure(s): XR abdomen 2V Accession Number(s): [id number] cc: JOANNA ADRIAN MD Fluoro Time In Minutes: Abdomen 2 views INDICATION: Abdominal pain FINDINGS: Nonspecific bowel gas pattern. No free air is seen. No large calcifications are identified. No acute bone findings. CT ABDOMEN AND PELVIS WITHOUT CONTRAST HISTORY: Pain with Abulation. COMPARISON: None. TECHNIQUE: CT images of the abdomen and pelvis were obtained without administration of intravenous contrast. All CT scans at this location are performed using CT dose reduction for ALARA by means of automated exposure control. FINDINGS: Lungs/bones: Lung bases are normal Abdomen/pelvis: Within limits of a noncontrast exam the liver, spleen, adrenal glands, pancreas, gallbladder and upper GI tract appear normal. No definite renal stones are seen. No hydronephrosis. Appendix is difficult to evaluate. There is some free fluid in the pelvis. Evaluation for inflammatory change in the bowel loops is limited to the posterior intra- abdominal fat. Mild distention of small bowel loops however there is fecal material and gas throughout the colon as well. No free air is seen. No acute bone findings IMPRESSION: 1. Mild distention of small bowel loops and colon loops with nonspecific bowel appearance. Evaluation for inflammatory change is limited. 2. Small amount of free fluid in the pelvis. The appendix is not well evaluated however visualized portions appear normal. Signer Name: Jerome Da Silva MD Signed: 04/28/2021 3:17 AM Workstation Name: [id number] - Medical Decision Making KUB nonspecific gas pattern, CT abdomen pelvis no acute findings mild small bowel loop distentions nonspecific. Patient advises symptoms are improved. UA noted for nitrates, leukocytes bacteria patient treated with antibiotics for UTI pyelonephritis.patient is voiding at this time there is no nausea or vomiting. Patient has tolerated p.o. challenge. Plan DC to home with prescriptions. Follow-up with primary care doctor in 2 to 3 days. Return to emergency if symptoms worsen. Patient verbalized agreement and understanding with discharge plan. Patient will be DC'd home in stable condition. Critical care attestation.: If time is entered above; I have spent that time in minutes in the direct care of this critically ill patient, excluding procedure time. ED Disposition Clinical Impression: UTI (urinary tract infection) Qualifiers: Urinary tract infection type: acute cystitis Hematuria presence: without hematuria Qualified Code(s): N30.00 - Acute cystitis without hematuria Abdominal pain Qualifiers: Abdominal location: lower abdomen, unspecified Qualified Code(s): R10.30 - Lower abdominal pain, unspecified Disposition: HOME / SELF CARE / HOMELESS Is pt being admited?: No Does the pt Need Aspirin: No Condition: Stable Instructions: Abdominal Pain (ED), Abdominal Pain, Adult, Urinary Tract Infection, Adult Additional Instructions: Take medications as prescribed, follow-up with your doctor in 2 to 3 days. Return to emergency department should symptoms worsen. Prescriptions: cephALEXin [Keflex] 500 mg PO Q12HR 7 Days #14 cap Ibuprofen [Motrin 800 MG tab] 800 mg PO Q8HR PRN #30 tablet PRN Reason: Pain Ondansetron [Zofran Odt] 4 mg PO Q8HR #12 tab.rapdis Referrals: MALINA VIVAR MD [Referring] - 3-5 Days Forms: Work/School Release Form(ED) Time of Disposition: 06:00
--- NOTE | 2021-04-28 03:21 | Cat Scan Report ---
CT ABDOMEN AND PELVIS WITHOUT CONTRAST HISTORY: Pain with Abulation. COMPARISON: None. TECHNIQUE: CT images of the abdomen and pelvis were obtained without administration of intravenous co ntrast. All CT scans at this location are performed using CT dose reduction for ALARA by means of au tomated exposure control. FINDINGS: Lungs/bones: Lung bases are normal Abdomen/pelvis: Within limits of a noncontrast exam the liver, spleen, adrenal glands, pancreas, gal lbladder and upper GI tract appear normal. No definite renal stones are seen. No hydronephrosis. Appe ndix is difficult to evaluate. There is some free fluid in the pelvis. Evaluation for inflammatory ch marta in the bowel loops is limited to the posterior intra-abdominal fat. Mild distention of small bow el loops however there is fecal material and gas throughout the colon as well. No free air is seen. N o acute bone findings IMPRESSION: 1. Mild distention of small bowel loops and colon loops with nonspecific bowel appearance. Evaluation for inflammatory change is limited. 2. Small amount of free fluid in the pelvis. The appendix is not well evaluated however visualized po rtions appear normal. Signer Name: Jerome Da Silva MD Signed: 04/28/2021 3:17 AM Workstation Name: [id number]
--- NOTE | 2021-04-28 04:13 | XRay Report ---
Abdomen 2 views INDICATION: Abdominal pain FINDINGS: Nonspecific bowel gas pattern. No free air is seen. No large calcifications are identified. No acute bone findings. Signer Name: Jerome Da Silva MD Signed: 04/28/2021 4:08 AM Workstation Name: [id number]
[2021-04-28] MEDS ORDERED: cefTRIAXone/NS 1 GM/50 ML 1 GM/50 ML BAG IV ONE (04:33)
[2021-04-28 06:42] VITALS: BP 167/108
== END 2021-04-28 06:33 | disposition home or self-care (01) ==
LOC: ED 00:09
DX: N39.0 Urinary tract infection, site not specified (principal); R10.30 Lower abdominal pain, unspecified; G43.909 Migraine, unspecified, not intractable, without status migrainosus; Z98.890 Other specified postprocedural states; Z79.899 Other long term (current) drug therapy
CPT/HCPCS: 36415; 74019; 74176; 80048; 80076; 81001; 82150; 83690; 84702; 85025; 87076; 87086; 87186; 96361; 96365; 96375; 99284; J0696; J1885; J2405; J7030

== ENCOUNTER 2021-08-06 07:33 | Day surgery (SDC) | payer BC ==
[2021-08-03 12:19] LABS: Hematocrit 37.3 % (30.3-42.9); Hemoglobin 11.8 gm/dl (10.1-14.3); Mean Corpuscular HGB Conc 32 % (30-34); Mean Corpuscular Volume 78 fl (79-97); Platelet Count 243 K/mm3 (140-440); Red Blood Count 4.79 M/mm3 (3.65-5.03)
[~2021-08-06 07:33] MED LIST: ACETAMINOPHEN 325 MG TAB PO SCH; CELECOXIB 200 MG CAP PO NR; GABAPENTIN 300 MG CAP PO SCH; LACTATED RINGERS 1,000 ML IV SCH; MIDAZOLAM 2 MG/2 ML INJ IV NR; SCOPOLAMINE TRANSDERMAL PATCH 72 HR TD NR
[2021-08-06] MEDS ORDERED: ceFAZolin/STERILE WATER 2 GM/20 ML SYRINGE IV NR (08:35)
--- NOTE | 2021-08-06 08:44 | Anesthesia Consultation ---
Anesthesia Consult and Med Hx Date of service: 08/06/21 - Airway Anesthetic Teeth Evaluation: Good ROM Head & Neck: Adequate Mental/Hyoid Distance: Adequate Mallampati Class: Class II Intubation Access Assessment: Probably Good - Pre-Operative Health Status ASA Pre-Surgery Classification: ASA1 Proposed Anesthetic Plan: General - Pulmonary Hx Smoking: No Hx Respiratory Symptoms: No - Cardiovascular System Hx Hypertension: No - Central Nervous System CVA: No - Endocrine Hx Renal Disease: No Hx Liver Disease: No Hx Insulin Dependent Diabetes: No Hx Non-Insulin Dependent Diabetes: No Hx Thyroid Disease: No - Other Systems Hx Obesity: No - Additional Comments Anesthesia Medical History Comments: No hx anesthetic complications.
--- NOTE | 2021-08-06 08:44 | Anesthesia Day of Surgery ---
Anesthesia Day of Surgery - Day of Surgery Patient Examined: Yes Patient H&P Reviewed: Yes Patient is NPO: Yes
[2021-08-06] MEDS ORDERED: BUPIVACAINE/PF (0.5%) 5 MG/1 ML 30 ML VIAL INFILTRATI ONE ×2 (08:50→09:42)
[2021-08-06] MEDS ORDERED: ROCURONIUM 50 MG/5 ML INJ IV ONE (08:59)
[2021-08-06] MEDS ORDERED: fentaNYL 100 MCG/2 ML INJ ONE (08:59)
[2021-08-06] MEDS ORDERED: propofoL 200 MG/20 ML VIAL IV ONE (08:59)
[2021-08-06] MEDS ORDERED: LIDOCAINE MPF (2%) 20 MG/1 ML VIAL 5 ML ONE (08:59)
[2021-08-06] MEDS ORDERED: dexAMETHasone 20 MG/5 ML VIAL ONE (08:59)
[2021-08-06] MEDS ORDERED: MIDAZOLAM 2 MG/2 ML INJ ONE (08:59)
[2021-08-06] MEDS ORDERED: ONDANSETRON 4 MG/2 ML INJ IV PRN (09:00)
[2021-08-06] MEDS ORDERED: HYDROmorphone 1 MG/1 ML INJ IV PRN (09:00)
[2021-08-06] MEDS ORDERED: HYDROcodone/ACETAMINOPHEN 5-325 MG TAB PO PRN (09:00)
[2021-08-06] MEDS ORDERED: SODIUM CHLORIDE 0.9% IRR 1,500 ML BOTTLE IR ONE (09:42)
--- NOTE | 2021-08-06 11:37 | Post Anesthesia Evaluation ---
- Post Anesthesia Evaluation Patient Participated: Yes Airway Patent: Yes Stable Respiratory Function: Yes Nausea/Vomiting: No Temp > 96.8F: Yes Pain Manageable: Yes Adequeate Hydration: Yes Anesthesia Complications: No
[2021-08-06 17:55] VITALS: BP 116/75
== END 2021-08-06 07:34 | disposition home or self-care (01) ==
LOC: OR 07:33
PROVIDERS: ATTEND Obstetrics & Gynecology
DX: R10.2 Pelvic and perineal pain (principal); G89.29 Other chronic pain; D50.8 Other iron deficiency anemias; F32.9 Major depressive disorder, single episode, unspecified; K21.9 Gastro-esophageal reflux disease without esophagitis; Z79.899 Other long term (current) drug therapy; Z98.891 History of uterine scar from previous surgery; Z72.89 Other problems related to lifestyle; Z98.890 Other specified postprocedural states
CPT/HCPCS: 36415; 49320; 84703; 85027; J1100; J2250; J2405; J2704; J3010; J3490; J7120; U0003

== ENCOUNTER 2021-11-21 13:58 | Emergency (ER) | payer BC ==
[2021-11-21 15:06] VITALS: BP 109/69
== END 2021-11-23 02:00 | disposition left against medical advice (07) ==
LOC: ED 13:58
DX: N89.8 Other specified noninflammatory disorders of vagina (principal); Z53.21 Procedure and treatment not carried out due to patient leaving prior to being seen by health care provider

== ENCOUNTER 2021-11-26 12:13 | Emergency (ER) | payer BC ==
[2021-11-26 12:50] VITALS: BP 98/52
[2021-11-26 15:27] LABS: HCG Qualitative,Urine Negative (Negative)
[2021-11-26 15:32] LABS: Bilirubin,Urine Negative (Negative); Blood,Urine Negative (Negative); Color,Urine Yellow (Yellow); Protein,Urine <15 mg/dL mg/dL (Negative)
[2021-11-26 15:34] LABS: RBC,Urine < 1.0 /HPF (0.0-6.0); WBC,Urine < 1.0 /HPF (0.0-6.0)
== END 2021-11-27 01:34 | disposition left against medical advice (07) ==
LOC: ED 12:13
DX: N89.8 Other specified noninflammatory disorders of vagina (principal); R10.9 Unspecified abdominal pain; Z53.21 Procedure and treatment not carried out due to patient leaving prior to being seen by health care provider
CPT/HCPCS: 81001; 81025